=== PATIENT | female | born 1960 | race Two or more races ===

== ENCOUNTER 2019-05-12 14:19 | Emergency (ER) | payer OTHER, MEDICAID ==
[~2019-05-12] VITALS: Ht 170.2 cm; Wt 95.3 kg
[~2019-05-12 14:19] MED LIST: ASPI81TA10 PO; CETI10TA93 PO; GABA300C10 PO; INSU100I4; INSUINJ37; LEVO500T21 PO; LOS25T PO; METF-370 PO; METO25TA93 PO; PAR20T PO; TRAZ50TA2 PO
[2019-05-12 15:20] LABS: Basophils # (auto) 0 uL; Basophils % (auto) 0.3 % (0.0-2.0); Eosinophils # (auto) 0 uL; Eosinophils % (auto) 0.2 % (0.0-7.0); Hematocrit 46.4 % (36.0-46.0); Hemoglobin 15.3 g/dL (12.2-16.2); Lymphocytes # (auto) 1.2 uL; Lymphocytes % (auto) 17.3 % (10.0-50.0); Mean Corpuscular Hgb Conc. 32.9 g/dL (32.0-36.0); Mean Corpuscular Volume 87.9 fL (80.0-100.0); Monocytes # (auto) 0.7 uL; Monocytes % (auto) 9.3 % (0.0-12.0); Neutrophils # (auto) 5.2 uL; Neutrophils % (auto) 72.9 % (37.0-80.0); Platelet Count (auto) 171 10^3/uL (140-450); Red Blood Cells 5.28 10^6/uL (4.0-5.20); Red Cell Distribution Width 14.1 % (11.8-14.3); White Blood Cell 7.1 10^3/uL (4.4-10.8)
[2019-05-12 15:46] LABS: Albumin 1.7 g/dL (3.4-5.0); BUN/Creatinine Ratio 15.5; Calcium 8.1 mg/dL (8.5-10.1); Potassium 4.5 mmol/L (3.5-5.1)
[2019-05-12 15:51] LABS: Bilirubin, Total 0.7 mg/dL (0.2-1.0); Total Protein 5.7 g/dL (6.4-8.2)
[2019-05-12] MEDS ORDERED: ALBUTEROL SULF 2.5 MG/0.5ML(0.5%) NEB SOLN NEB ONE (18:30)
[2019-05-12] MEDS ORDERED: FUROSEMIDE 40 MG/4 ML VIAL IV ONE (18:30)
[2019-05-12 20:59] VITALS: BP 198/75
== END 2019-05-12 21:41 | disposition home or self-care (01) ==
LOC: EDBD 14:19 → ER 14:19
DX: R53.1 Weakness (principal); R06.02 Shortness of breath; I11.0 Hypertensive heart disease with heart failure; I50.9 Heart failure, unspecified; E11.9 Type 2 diabetes mellitus without complications; Z90.710 Acquired absence of both cervix and uterus; Z87.440 Personal history of urinary (tract) infections; Z79.82 Long term (current) use of aspirin; Z79.4 Long term (current) use of insulin; Z79.899 Other long term (current) drug therapy
CPT/HCPCS: 36415; 71046; 80053; 83735; 83880; 84484; 85025; 93005; 94640; 96374; 99285; J1940

== ENCOUNTER 2020-04-19 20:00 | Observation (INO) | payer OTHER, MEDICAID ==
[~2020-04-19] VITALS: Ht 154.9 cm; Wt 89.8 kg
[~2020-04-19 20:00] MED LIST changes: -LEVO500T21 PO; +LEVO500T31 PO
[2020-04-19 22:34] LABS: Basophils # (auto) 0 10 ^3/uL (0-0.2); Basophils % (auto) 0.3 % (0.0-2.0); Eosinophils # (auto) 0 10 ^3/uL (0-0.8); Eosinophils % (auto) 0.5 % (0.0-7.0); Hematocrit 34.7 % (36.0-46.0); Lymphocytes # (auto) 1.2 10 ^3/uL (0.4-5.4); Lymphocytes % (auto) 13.9 % (10.0-50.0); Mean Corpuscular Hemoglobin 29.9 pg (28.0-32.0); Mean Corpuscular Hgb Conc. 34.5 g/dL (32.0-36.0); Mean Corpuscular Volume 86.6 fL (80.0-100.0); Monocytes # (auto) 0.3 10 ^3/uL (0-1.3); Neutrophils # (auto) 6.9 10 ^3/uL (1.6-8.6); Neutrophils % (auto) 81.3 % (37.0-80.0); Nucleated Red Blood Cells % 0.1 %; Platelet Count (auto) 188 10^3/uL (140-450); White Blood Cell 8.5 10^3/uL (4.4-10.8)
[2020-04-19 22:52] LABS: Albumin 1.5 g/dL (3.4-5.0); Anion Gap 5 (5-15); Blood Urea Nitrogen 31 mg/dL (7-18); Calcium 7.7 mg/dL (8.5-10.1); Carbon Dioxide 25 mmol/L (21-32); Chloride 111 mmol/L (98-107); Glucose 259 mg/dL (74-106); Potassium 3.8 mmol/L (3.5-5.1); Sodium 141 mmol/L (136-145)
[2020-04-19 23:00] LABS: Alanine Aminotransferase 14 U/L (13-56); Alkaline Phosphatase 61 U/L (45-117); Aspartate Aminotransferase 17 U/L (15-37); BUN/Creatinine Ratio 13.8; Bilirubin, Total 0.5 mg/dL (0.2-1.0); GFR African American 29 mL/min; GFR Non-African American 24 mL/min; Total Protein 5.1 g/dL (6.4-8.2)
[2020-04-20] MEDS ORDERED: hydrALAZINE HCL 20 MG/ML VL IV ONE (00:45)
[2020-04-20] MEDS ORDERED: HYDROcodone-ACET 5/325MG TAB PO ONE (00:45)
[2020-04-20] MEDS ORDERED: ATORVASTATIN 20 MG TAB PO ONE (11:15)
[2020-04-20] MEDS ORDERED: SODIUM CHLORIDE 0.9% 1,000 ML IV ONE (11:15)
[2020-04-20] MEDS ORDERED: ASPirin 325 MG TAB PO ONE (11:15)
[2020-04-20] MEDS ORDERED: DEXTROSE (50%) 50ML SYRG IV PRN (11:15)
[2020-04-20 11:39] LABS: Urine Bacteria NONE SEEN /hpf (None Seen); Urine Blood 2+ /uL (Negative); Urine Hyaline Cast FEW /lpf (0 - 2); Urine WBC 4 /hpf (0 - 5)
[2020-04-20] MEDS: InsuLIN REG 1unit/0.01ml Soln (100units/ml) SC SCH ×3 (12:00→20:00)
[2020-04-20] MEDS: ACCU-CHEK COMFORT CURVE STRIP VI SCH ×3 (12:00→20:18)
[2020-04-20] MEDS ORDERED: NITROGLYCERIN 0.4 MG SL TAB SL PRN (12:30)
[2020-04-20] MEDS ORDERED: MORPHINE SULF INJ 2 MG/ML SYRINGE 1ML IV PRN (12:30)
[2020-04-20 22:53] LABS: Cholesterol 305 mg/dL (< 200)
[2020-04-20 22:55] LABS: HDL Cholesterol 42 mg/dL (40-59); LDL Cholesterol 228 mg/dL (< 100); Triglycerides 190 mg/dL (< 150)
[2020-04-20] MEDS ORDERED: cloNIDine HCL 0.1 MG TAB PO ONE (23:15)
[2020-04-21] MEDS: ACCU-CHEK COMFORT CURVE STRIP VI SCH ×5 (00:13→16:24)
[2020-04-21] MEDS: InsuLIN REG 1unit/0.01ml Soln (100units/ml) SC SCH ×5 (04:00→16:00)
[2020-04-21] MEDS ORDERED: cloNIDine HCL 0.1 MG TAB PO PRN (06:45)
[2020-04-21 07:51] LABS: Basophils # (auto) 0 10 ^3/uL (0-0.2); Basophils % (auto) 0.4 % (0.0-2.0); Eosinophils # (auto) 0.1 10 ^3/uL (0-0.8); Eosinophils % (auto) 1.7 % (0.0-7.0); Hematocrit 34.8 % (36.0-46.0); Hemoglobin 11.9 g/dL (12.2-16.2); Lymphocytes # (auto) 1.8 10 ^3/uL (0.4-5.4); Lymphocytes % (auto) 24.3 % (10.0-50.0); Mean Corpuscular Hemoglobin 29.9 pg (28.0-32.0); Mean Corpuscular Hgb Conc. 34.1 g/dL (32.0-36.0); Mean Corpuscular Volume 87.7 fL (80.0-100.0); Monocytes # (auto) 0.5 10 ^3/uL (0-1.3); Monocytes % (auto) 6.6 % (0.0-12.0); Nucleated Red Blood Cells % 0.1 %; Platelet Count (auto) 186 10^3/uL (140-450); Red Blood Cells 3.97 10^6/uL (4.0-5.20); Red Cell Distribution Width 13.4 % (11.8-14.3); White Blood Cell 7.5 10^3/uL (4.4-10.8)
[2020-04-21 08:11] LABS: BUN/Creatinine Ratio 18.8; Calcium 7.7 mg/dL (8.5-10.1); Potassium 3.7 mmol/L (3.5-5.1)
[2020-04-21] MEDS ORDERED: hydrALAZINE HCL 20 MG/ML VL IV PRN (09:00)
[2020-04-21] MEDS ORDERED: ASPirin 81 mg TAB PO SCH (10:00)
[2020-04-21] MEDS ORDERED: LIDOCAINE VISCOUS 2% 15ML UD ONE (12:58)
[2020-04-21] MEDS ORDERED: MIDAZOLAM HCL 1MG/1ML-2 ML VIAL ONE (13:05)
[2020-04-21] MEDS ORDERED: fentaNYL CITRATE 100 MCG/2 ML VL ONE (13:05)
[2020-04-21] MEDS ORDERED: fentaNYL CITRATE 100 MCG/2 ML VL IV ONE (13:15)
[2020-04-21] MEDS ORDERED: MIDAZOLAM HCL 1MG/1ML-2 ML VIAL IV ONE (13:15)
[2020-04-21] MEDS ORDERED: WARFARIN SODIUM 2.5 MG TAB PO ONE (17:00)
[2020-04-21 17:17] LABS: INR 0.97 (0.9-1.15)
[2020-04-21 18:00] VITALS: BP 176/67
== END 2020-04-21 20:00 | disposition home or self-care (01) ==
LOC: EDBD 20:00 → ER 20:09 → TELE 20:10
PROVIDERS: ADMIT Hospitalist; ATTEND Hospitalist
DX: I63.9 Cerebral infarction, unspecified (principal); Z20.828 Contact with and (suspected) exposure to other viral communicable diseases; I13.0 Hypertensive heart and chronic kidney disease with heart failure and stage 1 through stage 4 chronic kidney disease, or unspecified chronic kidney disease; E11.22 Type 2 diabetes mellitus with diabetic chronic kidney disease; N18.9 Chronic kidney disease, unspecified; I50.9 Heart failure, unspecified; I69.351 Hemiplegia and hemiparesis following cerebral infarction affecting right dominant side; N17.9 Acute kidney failure, unspecified; Q21.1 Atrial septal defect; E66.9 Obesity, unspecified; E78.5 Hyperlipidemia, unspecified; R41.82 Altered mental status, unspecified; M54.31 Sciatica, right side; Z90.710 Acquired absence of both cervix and uterus; Z79.01 Long term (current) use of anticoagulants; Z79.4 Long term (current) use of insulin; Z79.82 Long term (current) use of aspirin; Z79.899 Other long term (current) drug therapy; Z68.37 Body mass index [BMI] 37.0-37.9, adult
CPT/HCPCS: 36415; 70450; 70551; 71045; 72131; 73502; 80048; 80053; 80061; 81001; 82962; 83880; 84484; 85025; 85379; 85610; 87426; 92610; 93005; 93312; 93886; 95819; 96361; 96372; 96374; 96375; 96376; 99285; G0378; J0360; J1815; J2250; J2270; J3010; J7030; U0003

== ENCOUNTER 2020-05-14 10:24 | Inpatient (IN) | payer OTHER, MEDICAID ==
[~2020-05-14] VITALS: Ht 160 cm; Wt 80.7 kg
[2020-05-14 11:13] LABS: Basophils # (auto) 0 10 ^3/uL (0-0.2); Eosinophils # (auto) 0.1 10 ^3/uL (0-0.8); Monocytes # (auto) 1.3 10 ^3/uL (0-1.3); Neutrophils # (auto) 12.4 10 ^3/uL (1.6-8.6)
[2020-05-14 11:15] LABS: Eosinophils % (auto) 0.6 % (0.0-7.0); Lymphocytes # (auto) 2.1 10 ^3/uL (0.4-5.4); Mean Corpuscular Hgb Conc. 33.7 g/dL (32.0-36.0); Monocytes % (auto) 7.9 % (0.0-12.0); Neutrophils % (auto) 78.5 % (37.0-80.0); Platelet Count (auto) 395 10^3/uL (140-450); Red Blood Cells 2.02 10^6/uL (4.0-5.20); Red Cell Distribution Width 14.1 % (11.8-14.3); White Blood Cell 15.9 10^3/uL (4.4-10.8)
[2020-05-14 11:21] LABS: Hemoglobin 6.1 g/dL (12.2-16.2)
[2020-05-14 11:27] LABS: Alanine Aminotransferase 57 U/L (13-56); Albumin 1.4 g/dL (3.4-5.0); Anion Gap 4 (5-15); Calcium 7.6 mg/dL (8.5-10.1); Carbon Dioxide 32 mmol/L (21-32); Chloride 94 mmol/L (98-107); Sodium 130 mmol/L (136-145)
[2020-05-14 11:36] LABS: Alkaline Phosphatase 111 U/L (45-117); Aspartate Aminotransferase 67 U/L (15-37); BUN/Creatinine Ratio 44.5; GFR African American 26 mL/min; GFR Non-African American 21 mL/min; Total Protein 5.9 g/dL (6.4-8.2)
[2020-05-14 11:45] LABS: Blood Urea Nitrogen 110 mg/dL (7-18); Glucose 503 mg/dL (74-106)
[2020-05-14] MEDS ORDERED: SODIUM CHLORIDE 0.9% 1,000 ML IV ONE ×2 (12:00→21:30)
[2020-05-14 12:54] LABS: Urine Amorphous Crystal MOD /hpf (None Seen); Urine Bacteria MOD /hpf (None Seen); Urine Blood 2+ /uL (Negative); Urine Specific Gravity 1.013 (1.001-1.035); Urine WBC 14 /hpf (0 - 5)
[2020-05-14 14:13] VITALS: BP 159/56
[2020-05-14 14:28] VITALS: BP 154/52
[2020-05-14] MEDS ORDERED: InsuLIN REG 1unit/0.01ml Soln (100units/ml) IV ONE (14:45)
[2020-05-14] MEDS ORDERED: cefTRIAXone 1GM/50ML D5W 50 ML IV ONE (15:15)
[2020-05-14 16:57] VITALS: BP 134/67
[2020-05-14 18:13] VITALS: BP 142/55
[2020-05-14 18:28] VITALS: BP 146/48
[2020-05-14 19:37] VITALS: BP 159/81
[2020-05-14] MEDS ORDERED: ALBUMIN 25% 100 ML IV ONE (21:30)
[2020-05-14] MEDS ORDERED: VANCOMYCIN 1GM/250ML 250 ML IV ONE (21:30)
[2020-05-14] MEDS ORDERED: MORPHINE SULF INJ 2 MG/ML SYRINGE 1ML IV PRN ×2 (21:30→22:45)
[2020-05-14] MEDS ORDERED: VANCOMYCIN PER PHARMACY 0 MG IV SCH (21:30)
[2020-05-14] MEDS ORDERED: DEXTROSE (50%) 50ML SYRG IV PRN (21:30)
[2020-05-14] MEDS ORDERED: NITROGLYCERIN 0.4 MG SL TAB SL PRN (21:30)
[2020-05-14 21:38] LABS: Partial Thromboplastin Time 69.5 sec (23.0-31.2)
[2020-05-14 21:46] LABS: INR 5.43 (0.9-1.15)
[2020-05-14] MEDS ORDERED: ONDANSETRON HCL 4 MG/2 ML VIAL IV PRN (22:00)
[2020-05-14] MEDS: CALCIUM GLUC 4.65meq/50ml D5AE 50 ML IV SCH (22:00)
[2020-05-14] MEDS: INSULIN LANTUS (GLARGINE) 1 /0.01ml (100units/ml) SC SCH (22:00)
[2020-05-14] MEDS: PIPERACILLIN-TAZOB 2.25GM 50 ML IV SCH (22:00)
[2020-05-15] VITALS (9 sets, daily range): BP systolic 145–158; BP diastolic 46–80
[2020-05-15] MEDS ORDERED: LACTULOSE 20Gm/30ML SOLN PO ONE
[2020-05-15] MEDS: CALCIUM GLUC 4.65meq/50ml D5AE 50 ML IV SCH
[2020-05-15] MEDS ORDERED: FUROSEMIDE 40 MG/4 ML VIAL IV ONE
[2020-05-15] MEDS: MORPHINE SULF INJ 2 MG/ML SYRINGE 1ML IV PRN (03:30)
[2020-05-15] MEDS: InsuLIN REG 1unit/0.01ml Soln (100units/ml) SC SCH ×5 (06:00→23:40)
[2020-05-15] MEDS: ACCU-CHEK COMFORT CURVE STRIP VI SCH ×5 (06:07→23:41)
[2020-05-15] MEDS: PIPERACILLIN-TAZOB 2.25GM 50 ML IV SCH (06:07)
[2020-05-15 08:04] LABS: Basophils # (auto) 0 10 ^3/uL (0-0.2); Basophils % (auto) 0.1 % (0.0-2.0); Eosinophils # (auto) 0.2 10 ^3/uL (0-0.8); White Blood Cell 13.1 10^3/uL (4.4-10.8)
[2020-05-15 08:06] LABS: Eosinophils % (auto) 1.6 % (0.0-7.0); Hematocrit 22.4 % (36.0-46.0); Lymphocytes # (auto) 2.5 10 ^3/uL (0.4-5.4); Lymphocytes % (auto) 19.2 % (10.0-50.0); Mean Corpuscular Hemoglobin 30.2 pg (28.0-32.0); Mean Corpuscular Hgb Conc. 35.6 g/dL (32.0-36.0); Mean Corpuscular Volume 84.8 fL (80.0-100.0); Monocytes # (auto) 1.1 10 ^3/uL (0-1.3); Monocytes % (auto) 8.5 % (0.0-12.0); Neutrophils # (auto) 9.2 10 ^3/uL (1.6-8.6); Neutrophils % (auto) 70.6 % (37.0-80.0); Platelet Count (auto) 330 10^3/uL (140-450); Red Blood Cells 2.64 10^6/uL (4.0-5.20); Red Cell Distribution Width 14.6 % (11.8-14.3)
[2020-05-15 08:20] LABS: Potassium 3.9 mmol/L (3.5-5.1)
[2020-05-15 08:27] LABS: Albumin 1.7 g/dL (3.4-5.0); BUN/Creatinine Ratio 47.7; Bilirubin, Total 1.2 mg/dL (0.2-1.0); Calcium 7.6 mg/dL (8.5-10.1); Total Protein 5.4 g/dL (6.4-8.2)
[2020-05-15] MEDS ORDERED: LOSARTAN POTASSIUM 25 MG TAB PO SCH (10:00)
[2020-05-15] MEDS ORDERED: METOPROLOL SUCCINATE XL 50 MG TAB PO SCH (10:00)
[2020-05-15] MEDS ORDERED: INFLUENZA QUAD 2020-2021 0.5 ML SYRG IM ONE (10:45)
[2020-05-15] MEDS ORDERED: PNEUMOCOCCAL VACC POLYS 25 MCG/0.5 ML VIAL IM ONE (10:45)
[2020-05-15] MEDS ORDERED: VANCOMYCIN 1GM/250ML 250 ML IV SCH (12:00)
[2020-05-15] MEDS ORDERED: ACETAMINOPHEN 500 MG TAB PO ONE (13:45)
[2020-05-15 14:48] LABS: Basophils # (auto) 0 10 ^3/uL (0-0.2); Basophils % (auto) 0.2 % (0.0-2.0); Eosinophils # (auto) 0.2 10 ^3/uL (0-0.8); Eosinophils % (auto) 1.4 % (0.0-7.0); Hematocrit 24.5 % (36.0-46.0); Hemoglobin 8.5 g/dL (12.2-16.2); Lymphocytes # (auto) 2.1 10 ^3/uL (0.4-5.4); Lymphocytes % (auto) 14.3 % (10.0-50.0); Mean Corpuscular Hemoglobin 29.8 pg (28.0-32.0); Mean Corpuscular Hgb Conc. 34.8 g/dL (32.0-36.0); Mean Corpuscular Volume 85.8 fL (80.0-100.0); Monocytes # (auto) 1.1 10 ^3/uL (0-1.3); Monocytes % (auto) 7.4 % (0.0-12.0); Neutrophils # (auto) 11.2 10 ^3/uL (1.6-8.6); Neutrophils % (auto) 76.7 % (37.0-80.0); Platelet Count (auto) 332 10^3/uL (140-450); Red Blood Cells 2.86 10^6/uL (4.0-5.20); Red Cell Distribution Width 14.8 % (11.8-14.3); White Blood Cell 14.6 10^3/uL (4.4-10.8)
[2020-05-15 15:53] LABS: INR 6.41 (0.9-1.15)
[2020-05-15] MEDS: CEFEPIME 1 GM in SODIUM CHL 0.9% 50 ML IV SCH (16:00)
[2020-05-15] MEDS: DOCUSATE SOD 100 MG CAP PO SCH (21:50)
[2020-05-15] MEDS: INSULIN LANTUS (GLARGINE) 1 /0.01ml (100units/ml) SC SCH (21:50)
[2020-05-15 21:52] LABS: Hematocrit 23.2 % (36.0-46.0); Mean Corpuscular Hemoglobin 29.5 pg (28.0-32.0); Mean Corpuscular Hgb Conc. 34.4 g/dL (32.0-36.0); Mean Corpuscular Volume 85.8 fL (80.0-100.0); Red Blood Cells 2.71 10^6/uL (4.0-5.20); Red Cell Distribution Width 14.7 % (11.8-14.3); White Blood Cell 13.6 10^3/uL (4.4-10.8)
[2020-05-15] MEDS: LINEZOLID 600MG/300ML 300 ML IV SCH (23:16)
[2020-05-16] MEDS: MORPHINE SULF INJ 2 MG/ML SYRINGE 1ML IV PRN ×2 (00:29→04:33)
[2020-05-16] MEDS: CEFEPIME 1 GM in SODIUM CHL 0.9% 50 ML IV SCH ×2 (04:33→17:12)
[2020-05-16 05:30] VITALS: BP 147/84
[2020-05-16] MEDS: InsuLIN REG 1unit/0.01ml Soln (100units/ml) SC SCH ×3 (06:00→18:31)
[2020-05-16] MEDS: ACCU-CHEK COMFORT CURVE STRIP VI SCH ×3 (06:29→17:12)
[2020-05-16 07:28] LABS: Basophils # (auto) 0 10 ^3/uL (0-0.2); Mean Corpuscular Hemoglobin 29.8 pg (28.0-32.0); Monocytes % (auto) 7.8 % (0.0-12.0); Red Cell Distribution Width 14.8 % (11.8-14.3)
[2020-05-16 07:32] LABS: Eosinophils # (auto) 0.2 10 ^3/uL (0-0.8); Eosinophils % (auto) 1.7 % (0.0-7.0); Hematocrit 22.7 % (36.0-46.0); Hemoglobin 7.8 g/dL (12.2-16.2); Lymphocytes # (auto) 1.9 10 ^3/uL (0.4-5.4); Lymphocytes % (auto) 15.2 % (10.0-50.0); Mean Corpuscular Hgb Conc. 34.5 g/dL (32.0-36.0); Mean Corpuscular Volume 86.3 fL (80.0-100.0); Neutrophils # (auto) 9.5 10 ^3/uL (1.6-8.6); Neutrophils % (auto) 75.3 % (37.0-80.0); Platelet Count (auto) 337 10^3/uL (140-450); Red Blood Cells 2.63 10^6/uL (4.0-5.20); White Blood Cell 12.7 10^3/uL (4.4-10.8)
[2020-05-16 07:44] LABS: Calcium 7.7 mg/dL (8.5-10.1); Potassium 3.5 mmol/L (3.5-5.1)
[2020-05-16 07:46] LABS: Albumin 1.7 g/dL (3.4-5.0); BUN/Creatinine Ratio 39.7
[2020-05-16 07:49] LABS: Bilirubin, Total 1.5 mg/dL (0.2-1.0); Total Protein 5.3 g/dL (6.4-8.2)
[2020-05-16 08:00] VITALS: BP_SYST 144; BP_SYST 154; BP_DIAS 70; BP_DIAS 73
[2020-05-16] MEDS: DOCUSATE SOD 100 MG CAP PO SCH ×4 (10:46→23:08)
[2020-05-16] MEDS: LINEZOLID 600MG/300ML 300 ML IV SCH ×2 (10:48→22:51)
[2020-05-16 11:22] LABS: Hemoglobin 8.2 g/dL (12.2-16.2); Mean Corpuscular Hgb Conc. 34.6 g/dL (32.0-36.0); Red Blood Cells 2.76 10^6/uL (4.0-5.20); White Blood Cell 13.9 10^3/uL (4.4-10.8)
[2020-05-16 11:24] LABS: Hematocrit 23.6 % (36.0-46.0); Mean Corpuscular Hemoglobin 29.6 pg (28.0-32.0); Mean Corpuscular Volume 85.7 fL (80.0-100.0); Red Cell Distribution Width 14.6 % (11.8-14.3)
[2020-05-16] MEDS ORDERED: PHYTONADIONE(VitK) ORAL Susp 10mg/10ml(1mg/ml) PO ONE (11:30)
[2020-05-16 11:40] LABS: INR 2.92 (0.9-1.15)
[2020-05-16 12:00] VITALS: BP 145/67
[2020-05-16] MEDS ORDERED: LACTATED RINGER'S 1,000 ML IV ONE (15:45)
[2020-05-16 16:00] VITALS: BP 143/52
[2020-05-16] MEDS ORDERED: PHYTONADIONE (VIT K)10 MG/ML 1ML VIAL SUBCUT ONE (18:45)
[2020-05-16 22:00] VITALS: BP 162/76
[2020-05-16] MEDS: INSULIN LANTUS (GLARGINE) 1 /0.01ml (100units/ml) SC SCH (23:06)
[2020-05-17] VITALS (7 sets, daily range): BP systolic 121–159; BP diastolic 55–71
[2020-05-17] MEDS: ACCU-CHEK COMFORT CURVE STRIP VI SCH ×5 (00:42→22:47)
[2020-05-17] MEDS: InsuLIN REG 1unit/0.01ml Soln (100units/ml) SC SCH ×5 (00:43→22:48)
[2020-05-17] MEDS: CEFEPIME 1 GM in SODIUM CHL 0.9% 50 ML IV SCH ×2 (04:02→15:29)
[2020-05-17 06:50] LABS: Basophils # (auto) 0 10 ^3/uL (0-0.2); Basophils % (auto) 0.1 % (0.0-2.0); Eosinophils # (auto) 0.3 10 ^3/uL (0-0.8); Eosinophils % (auto) 2.2 % (0.0-7.0); Hematocrit 22.6 % (36.0-46.0); Hemoglobin 7.8 g/dL (12.2-16.2); Lymphocytes # (auto) 1.8 10 ^3/uL (0.4-5.4); Lymphocytes % (auto) 13.5 % (10.0-50.0); Mean Corpuscular Hemoglobin 29.7 pg (28.0-32.0); Mean Corpuscular Hgb Conc. 34.3 g/dL (32.0-36.0); Mean Corpuscular Volume 86.8 fL (80.0-100.0); Monocytes # (auto) 0.9 10 ^3/uL (0-1.3); Monocytes % (auto) 6.6 % (0.0-12.0); Neutrophils # (auto) 10.5 10 ^3/uL (1.6-8.6); Neutrophils % (auto) 77.6 % (37.0-80.0); Platelet Count (auto) 361 10^3/uL (140-450); Red Blood Cells 2.61 10^6/uL (4.0-5.20); Red Cell Distribution Width 14.6 % (11.8-14.3); White Blood Cell 13.5 10^3/uL (4.4-10.8)
[2020-05-17 07:06] LABS: Albumin 1.5 g/dL (3.4-5.0); Calcium 7.5 mg/dL (8.5-10.1); Potassium 3.2 mmol/L (3.5-5.1)
[2020-05-17 07:09] LABS: BUN/Creatinine Ratio 35.3; Bilirubin, Total 1.5 mg/dL (0.2-1.0); Total Protein 5.4 g/dL (6.4-8.2)
[2020-05-17 07:18] LABS: INR 1.08 (0.9-1.15); Partial Thromboplastin Time 32.5 sec (23.0-31.2)
[2020-05-17] MEDS: LINEZOLID 600MG/300ML 300 ML IV SCH ×2 (09:23→21:47)
[2020-05-17] MEDS: DOCUSATE SOD 100 MG CAP PO SCH ×2 (09:23→21:47)
[2020-05-17] MEDS: hydrALAZINE HCL 20 MG/ML VL IV PRN (09:24)
[2020-05-17] MEDS ORDERED: AMOX500T86 PO (11:10)
[2020-05-17] MEDS ORDERED: METR500T PO (11:10)
[2020-05-17] MEDS ORDERED: ASCO500T11 PO (11:13)
[2020-05-17] MEDS ORDERED: FERR-20 PO (11:13)
[2020-05-17] MEDS ORDERED: ATOR20TA PO (11:14)
[2020-05-17] MEDS ORDERED: POTASSIUM CHL 20 Meq TABLET PO ONE (11:15)
[2020-05-17] MEDS: amLODIPine BESYLATE 5 MG TAB PO SCH (12:27)
[2020-05-17] MEDS: INSULIN LANTUS (GLARGINE) 1 /0.01ml (100units/ml) SC SCH (22:13)
[2020-05-17] MEDS: MORPHINE SULF INJ 2 MG/ML SYRINGE 1ML IV PRN (22:37)
[2020-05-18] VITALS (7 sets, daily range): BP systolic 124–156; BP diastolic 56–94
[2020-05-18] MEDS: CEFEPIME 1 GM in SODIUM CHL 0.9% 50 ML IV SCH (04:03)
[2020-05-18] MEDS: hydrALAZINE HCL 20 MG/ML VL IV PRN (05:31)
[2020-05-18] MEDS: ACCU-CHEK COMFORT CURVE STRIP VI SCH ×3 (05:31→17:46)
[2020-05-18] MEDS: InsuLIN REG 1unit/0.01ml Soln (100units/ml) SC SCH ×3 (05:42→17:46)
[2020-05-18 08:24] LABS: Basophils # (auto) 0 10 ^3/uL (0-0.2); Basophils % (auto) 0.1 % (0.0-2.0); Lymphocytes # (auto) 2.4 10 ^3/uL (0.4-5.4)
[2020-05-18 08:25] LABS: Eosinophils # (auto) 0.4 10 ^3/uL (0-0.8); Eosinophils % (auto) 2.8 % (0.0-7.0); Hematocrit 23.2 % (36.0-46.0); Lymphocytes % (auto) 19.1 % (10.0-50.0); Mean Corpuscular Hemoglobin 29.9 pg (28.0-32.0); Mean Corpuscular Hgb Conc. 34.5 g/dL (32.0-36.0); Mean Corpuscular Volume 86.9 fL (80.0-100.0); Monocytes % (auto) 7.8 % (0.0-12.0); Neutrophils # (auto) 8.9 10 ^3/uL (1.6-8.6); Neutrophils % (auto) 70.2 % (37.0-80.0); Platelet Count (auto) 357 10^3/uL (140-450); Red Blood Cells 2.67 10^6/uL (4.0-5.20); Red Cell Distribution Width 14.9 % (11.8-14.3); White Blood Cell 12.7 10^3/uL (4.4-10.8)
[2020-05-18] MEDS: ASPirin-EC 325mg tab PO SCH (11:19)
[2020-05-18] MEDS: DOCUSATE SOD 100 MG CAP PO SCH ×2 (11:20→22:00)
[2020-05-18] MEDS: amLODIPine BESYLATE 5 MG TAB PO SCH (11:20)
[2020-05-18] MEDS: LINEZOLID 600MG/300ML 300 ML IV SCH ×2 (11:20→22:00)
[2020-05-18 11:25] LABS: BUN/Creatinine Ratio 30.2; Calcium 7.5 mg/dL (8.5-10.1); Potassium 4.2 mmol/L (3.5-5.1)
[2020-05-18] MEDS: PIPERACILLIN-TAZOB 2.25GM 50 ML IV SCH (18:12)
[2020-05-18] MEDS ORDERED: LORazepam 2MG/ML-1ML VIAL IM ONE (20:45)
[2020-05-18] MEDS ORDERED: LORazepam 2MG/ML-1ML VIAL IV ONE (21:15)
[2020-05-18] MEDS: INSULIN LANTUS (GLARGINE) 1 /0.01ml (100units/ml) SC SCH (22:00)
[2020-05-19] VITALS (13 sets, daily range): BP systolic 112–167; BP diastolic 36–66
[2020-05-19] MEDS: InsuLIN REG 1unit/0.01ml Soln (100units/ml) SC SCH ×3 (00:12→11:28)
[2020-05-19 05:32] LABS: Basophils # (auto) 0 10 ^3/uL (0-0.2); Basophils % (auto) 0.3 % (0.0-2.0); Eosinophils # (auto) 0.3 10 ^3/uL (0-0.8); Lymphocytes # (auto) 1.9 10 ^3/uL (0.4-5.4); Monocytes # (auto) 0.7 10 ^3/uL (0-1.3)
[2020-05-19 05:35] LABS: Eosinophils % (auto) 2.7 % (0.0-7.0); Hematocrit 21.9 % (36.0-46.0); Hemoglobin 7.7 g/dL (12.2-16.2); Lymphocytes % (auto) 18.8 % (10.0-50.0); Mean Corpuscular Hemoglobin 30.5 pg (28.0-32.0); Mean Corpuscular Hgb Conc. 35.2 g/dL (32.0-36.0); Mean Corpuscular Volume 86.8 fL (80.0-100.0); Monocytes % (auto) 7.1 % (0.0-12.0); Neutrophils # (auto) 7.1 10 ^3/uL (1.6-8.6); Neutrophils % (auto) 71.1 % (37.0-80.0); Platelet Count (auto) 359 10^3/uL (140-450); Red Blood Cells 2.52 10^6/uL (4.0-5.20); White Blood Cell 9.9 10^3/uL (4.4-10.8)
[2020-05-19 05:48] LABS: Potassium 4.2 mmol/L (3.5-5.1)
[2020-05-19 05:57] LABS: Albumin 1.4 g/dL (3.4-5.0); BUN/Creatinine Ratio 26.7; Calcium 7.4 mg/dL (8.5-10.1); Total Protein 5.4 g/dL (6.4-8.2)
[2020-05-19] MEDS: ACCU-CHEK COMFORT CURVE STRIP VI SCH ×3 (06:00→11:28)
[2020-05-19] MEDS: PIPERACILLIN-TAZOB 2.25GM 50 ML IV SCH ×3 (06:00→11:48)
[2020-05-19] MEDS: DOCUSATE SOD 100 MG CAP PO SCH (10:17)
[2020-05-19] MEDS: ASPirin-EC 325mg tab PO SCH (10:17)
[2020-05-19] MEDS: LINEZOLID 600MG/300ML 300 ML IV SCH (10:17)
[2020-05-19] MEDS: amLODIPine BESYLATE 5 MG TAB PO SCH (10:18)
== END 2020-05-19 17:53 | disposition home health service (06) | DRG 393 ==
LOC: ER 10:24 → EDBD 10:24 → TELE 10:25 → TELE-WESTW 05-15 10:30 → ICU CENTRL 05-18 12:45 → DOU IN ICU 05-18 13:14
PROVIDERS: ADMIT Internal Medicine; ATTEND Internal Medicine
PROC: 30233N1 Transfusion of Nonautologous Red Blood Cells into Peripheral Vein, Percutaneous Approach (ICD-10-PCS; 2020-05-14)
PROC: 30233K1 Transfusion of Nonautologous Frozen Plasma into Peripheral Vein, Percutaneous Approach (ICD-10-PCS; principal; 2020-05-15)
DX: K66.1 Hemoperitoneum (principal); G93.41 Metabolic encephalopathy; E43 Unspecified severe protein-calorie malnutrition; K68.12 Psoas muscle abscess; N17.0 Acute kidney failure with tubular necrosis; N39.0 Urinary tract infection, site not specified; E87.1 Hypo-osmolality and hyponatremia; D62 Acute posthemorrhagic anemia; D68.32 Hemorrhagic disorder due to extrinsic circulating anticoagulants; I69.351 Hemiplegia and hemiparesis following cerebral infarction affecting right dominant side; I69.354 Hemiplegia and hemiparesis following cerebral infarction affecting left non-dominant side; Q21.1 Atrial septal defect; I13.0 Hypertensive heart and chronic kidney disease with heart failure and stage 1 through stage 4 chronic kidney disease, or unspecified chronic kidney disease; E86.0 Dehydration; E11.65 Type 2 diabetes mellitus with hyperglycemia; I50.9 Heart failure, unspecified; L98.419 Non-pressure chronic ulcer of buttock with unspecified severity; D35.00 Benign neoplasm of unspecified adrenal gland; E11.22 Type 2 diabetes mellitus with diabetic chronic kidney disease; E11.42 Type 2 diabetes mellitus with diabetic polyneuropathy; F17.210 Nicotine dependence, cigarettes, uncomplicated; K56.41 Fecal impaction; T45.515A Adverse effect of anticoagulants, initial encounter; Z20.822 Contact with and (suspected) exposure to COVID-19; Z79.01 Long term (current) use of anticoagulants; Z79.82 Long term (current) use of aspirin; Z79.899 Other long term (current) drug therapy; Z82.49 Family history of ischemic heart disease and other diseases of the circulatory system; Z83.3 Family history of diabetes mellitus; Z87.440 Personal history of urinary (tract) infections; Z90.710 Acquired absence of both cervix and uterus; E66.01 Morbid (severe) obesity due to excess calories; F32.9 Major depressive disorder, single episode, unspecified; F41.9 Anxiety disorder, unspecified; G89.29 Other chronic pain; M54.5 Low back pain; Z79.84 Long term (current) use of oral hypoglycemic drugs; N18.32 Chronic kidney disease, stage 3b; Z68.35 Body mass index [BMI] 35.0-35.9, adult
CPT/HCPCS: 36415; 36430; 36600; 51702; 70450; 70551; 71045; 74176; 80048; 80053; 81001; 82805; 82962; 83036; 83605; 84443; 84484; 85025; 85027; 85379; 85610; 85730; 86850; 86900; 86901; 86920; 87040; 87081; 87426; 92610; 93005; 93970; 95819; 96361; 96365; 96367; 96375; 99291; G0378; J0610; J0696; J1815; J2543; J3430; P9047